=== PATIENT | male | born 1985 | race Caucasian/White ===

== ENCOUNTER 2024-05-01 16:12 | Observation (INO) | payer OTHER ==
[~2024-05-01] VITALS: Ht 180.3 cm; Wt 102.4 kg
[2024-05-01] MEDS: NS 1,000 ML IV SCH (18:37)
[2024-05-01] MEDS: fentaNYL 100 MCG/2 ML INJECTION IV ONE ×2 (18:37)
[2024-05-01] MEDS ORDERED: ONDANSETRON 4MG 2ML VIAL As Ordered ONE (19:59)
[2024-05-01] MEDS ORDERED: fentaNYL 100 MCG/2 ML INJECTION As Ordered ONE (19:59)
[2024-05-01] MEDS ORDERED: LIDOCAINE 2% 100MG/5ML SDV (FOR ANES.) As Ordered ONE (19:59)
[2024-05-01] MEDS ORDERED: propofoL 200 MG/20 ML VIAL As Ordered ONE (19:59)
[2024-05-01] MEDS ORDERED: MIDAZOLAM INJ 2MG/2ML VIAL As Ordered ONE (19:59)
[2024-05-01] MEDS ORDERED: KETAMINE HCL 200MG/20ML VIAL As Ordered ONE (20:02)
[2024-05-01] MEDS ORDERED: ACETAMINOPHEN 1000MG 100ML IV BAG As Ordered ONE (20:22)
[2024-05-01 21:04] VITALS: BP 124/87; TEMP 98.6; O2SAT 97
== END 2024-05-01 20:47 | disposition home or self-care (01) ==
LOC: M ED 16:12 → EDBD 16:12 → M ED INP 16:13
PROVIDERS: ADMIT Orthopaedic Surgery; ATTEND Orthopaedic Surgery
DX: S53.105A Unspecified dislocation of left ulnohumeral joint, initial encounter (principal); W19.XXXA Unspecified fall, initial encounter; Y93.89 Activity, other specified; Y99.0 Civilian activity done for income or pay; E66.9 Obesity, unspecified; Z87.891 Personal history of nicotine dependence; Z88.0 Allergy status to penicillin
CPT/HCPCS: 24600; 24605; 73060; 73070; 73080; 93041; 94760; 96361; 96374; 96376; 99285; J0131; J2250; J2405; J3010